=== PATIENT | female | born 1960 | race African-American/Black ===

== ENCOUNTER 2021-05-08 21:46 | Emergency (ER) | payer MEDICAID ==
[~2021-05-08] VITALS: Ht 172.7 cm; Wt 63.0 kg
[2021-05-08] MEDS ORDERED: BENZONATATE 200MG CAPSULE PO ONE (23:00)
[2021-05-08] MEDS ORDERED: KETOROLAC 30MG/ML VIAL IM ONE (23:30)
[2021-05-08 23:55] LABS: BASOPHILS % 0.3 % (0.0-2.0); EOSINOPHILS % 2.8 % (0.0-5.0); HEMOGLOBIN. 14.4 g/dL (12.0-16.0); LYMPHOCYTES % 20.5 % (20.0-50.0); MEAN CORPUSCULAR HEMOGLOBIN 34.8 pg (28.0-32.0); MEAN CORPUSCULAR VOLUME 103.7 fL (81.0-99.0); MEAN PLATELET VOLUME 8.1 fl (7.4-10.4); MONOCYTES % 12.1 % (2.0-8.0); NEUTROPHILS % 64.3 % (40.0-76.0); PLATELET 292 x1000/uL (130-400); RED BLOOD CELL COUNT 4.14 mill/uL (4.2-5.4); RED CELL DISTRIBUTION WIDTH 14.3 % (11.6-14.6)
[2021-05-08 23:59] LABS: CHLORIDE 109 mEq/L (98-107)
[2021-05-09 02:02] VITALS: BP 150/89
== END 2021-05-09 02:04 | disposition home or self-care (01) ==
LOC: ER 21:46
DX: B34.8 Other viral infections of unspecified site (principal); Z20.822 Contact with and (suspected) exposure to COVID-19; R19.7 Diarrhea, unspecified
CPT/HCPCS: 36415; 71045; 80053; 85025; 87426; 96372; 99284; J1885